=== PATIENT | male | born 1950 | race Caucasian/White ===

== ENCOUNTER 2017-06-05 07:33 | Observation (INO) | payer OTHER ==
[~2017-06-05] VITALS: Ht 182.9 cm; Wt 126.1 kg
[2017-06-05] VITALS (18 sets, daily range): BP systolic 129–163; BP diastolic 73–99
--- NOTE | ~2017-06-05 | H ---
[address] [address] HISTORY AND PHYSICAL Name: TRI MENDEZ Room: [address] Debo Mandujano#: [id number] Admission: 06/05/17 Attend Phys: Miles Carr MD, Discharge: 06/06/17 Date of : 48 Report #: [id number] THIS REPORT FOR: //name// Please refer to the History and Physical performed in the physician's office. By: 0645Medical Records Staff LIS /ANN
[~2017-06-05 07:33] MED LIST: CARDURA XL4 MG PO; CARVEDILOL6.25 MG PO; FISH OIL 1,001000 MG PO; GLUCOPHAGE500 MG PO; LEXAPRO 10 MG T10 M1 PER TUBE; LISINOPRIL20 MG PO; PLAVIX 75 MG TA75 M1 PER TUBE; SIMVASTATIN40 MG PO; TUSSIONEX PENN473 ML PO; VITAMIN C + RO500 MG PO; VITAMIN D-32000 UNIT PO; ZPAK PO
--- NOTE | 2017-06-05 07:37 | NUR ---
C/O NEED TO VOID. WENT TO BATHROOM PRIOR TO BEING TRIAGED OR EKG DONE.
--- NOTE | 2017-06-05 07:37 | NUR ---
CALL RECEIVED FROM OUTPATIENT FACILITY PHYSICAL THERAPIST CHAPO PRIOR TO PT'S ARRIVAL, STATED THAT PT IS EXPECTED BY CARDIOLOGY & PLAN IS TO TAKE PT TO [facility] & TO CALL OUTPATIENT FACILITY PHYSICAL THERAPIST WHEN PT ARRIVES IN E.D.
--- NOTE | 2017-06-05 07:45 | NUR ---
CARDIOLOGY NURSE CHAPO NOTIFIED OF PT'S ARRIVAL.
[2017-06-05] MEDS ORDERED: WELCHOL 625 MG625 MG PO (07:54)
[2017-06-05] MEDS ORDERED: LISINOPRIL20 MG PO (07:54)
[2017-06-05] MEDS ORDERED: COREG6.25 MG PO (07:54)
[2017-06-05] MEDS ORDERED: PLAVIX 75 MG TA75 M1 PO (07:54)
[2017-06-05] MEDS ORDERED: ASPIR 8181 MG PO (07:54)
[2017-06-05] MEDS ORDERED: DOXAZOSIN MESYLA4 MG PO (07:55)
[2017-06-05] MEDS ORDERED: OMEPRAZOLE20 M2 PO (07:56)
[2017-06-05] MEDS ORDERED: FISH OIL 1,001000 M2 PO (07:56)
[2017-06-05] MEDS ORDERED: METFORMIN HCL500 MG PO (07:56)
[2017-06-05] MEDS ORDERED: SIMVASTATIN40 MG PO (07:56)
[2017-06-05] MEDS ORDERED: VITAMIN E400 UNIT PO (07:57)
[2017-06-05] MEDS ORDERED: OSTERA TABLET1 EAC1 PO (07:57)
[2017-06-05] MEDS ORDERED: VITAMINC500 PO (07:58)
[2017-06-05 08:44] LABS: ABSOLUTE EOSINOPHILS 0.2 thou/uL (0.0-0.7); ABSOLUTE LYMPHOCYTES 1.2 thou/uL (0.8-5.3); ABSOLUTE MONOCYTES 0.5 thou/uL (0.0-1.2); ABSOLUTE NEUTROPHILS 2.6 thou/uL (1.6-8.1); EOSINOPHILS 5.1 %; HEMATOCRIT 40.6 % (42.0-52.0); HEMOGLOBIN 14.1 gm/dL (14.0-18.0); LYMPHOCYTES 26.8 %; MCH 31.1 pg (26.0-34.0); MCHC 34.7 g/dL (28.0-37.0); MCV 89.5 fL (80.0-100.0); MONOCYTES 9.9 %; MPV 6.6 fl. (7.2-11.1); NUCLEATED RBCS 0 /100WBC; PLATELET COUNT* 242 thou/uL (150-400); POLYS 57.2 %; RBC 4.54 mil/uL (4.50-6.00); RDW-CV 13.4 % (10.5-14.5); WBC 4.5 thou/uL (4.0-11.0)
[2017-06-05 08:53] LABS: ANION GAP 8 mmol/L (7-16); BUN 18 mg/dL (7-18); CHLORIDE 105 mmol/L (98-107); CO2 27 mmol/L (21-32); GLUCOSE 126 mg/dL (70-99); SODIUM 140 mmol/L (136-145)
[2017-06-05 08:59] LABS: ALBUMIN 3.7 g/dL (3.4-5.0); ALKALINE PHOSPHATASE 63 U/L (46-116); SGOT 33 U/L (15-37); SGPT 75 U/L (30-65); TOTAL BILIRUBIN 0.4 mg/dL (<0.1-1.0); TOTAL PROTEIN 7.2 g/dL (6.4-8.2); TROPONIN-I LEVEL <0.06 ng/mL (<0.06)
--- NOTE | 2017-06-05 14:52 | EKG ---
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1950 Requested By: Bhavani Amador Order Number: [id number] MD: Miles Carr Measurements Intervals [place] Rate: 71 P: 48 HI: 214 QRS: 43 QRSD: 105 T: 66 QT: 397 QTc: 432 Interpretive Statements Sinus rhythm Borderline prolonged HI interval Borderline T wave abnormalities Compared to ECG 12/18/2011 12:33:54 T-wave abnormality now present Electronically Signed On 06-05-2017 14:52:02 CDT by Miles Carr [email or web address] <ELECTRONICALLY SIGNED> By: Miles Carr MD, [facility] 06/05/17 1452 0744 0744 Miles Carr MD, [facility] /EPI
--- NOTE | 2017-06-05 14:53 | EKG ---
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 06/05/17 1453 1228 1228 Miles Carr MD, FACC /EPI
--- NOTE | 2017-06-05 15:27 | CARD ---
[address] [address] CARDIAC CATH REPORT Name: TRI MENDEZ Room: [address] Debo MGeorge#: [id number] Admission: 06/05/17 Attend Phys: Miles Carr MD, Discharge: Date of : 48 Report #: [id number] THIS REPORT FOR: //name// APPROVED REPORT Study performed: 06/05/2017 09:34:12 Patient Details Patient Status: ED Room #: The patient is a 66 year-old male Event Personnel Miles Carr Institutional Aide, Carmencita Valdez RN RN, Anay Tamayo, Jagruti Laguna RTOsorio Monitor Procedures Performed Art Access - R femoral artery* Left Heart Cath w/LT VGram [id number] [facility]CLV ESTEFANY Place w/wo Plasty Single RCA 300754 Hemostasis w/ Angioseal Indication Unstable angina Risk Factors Obesity, Hypercholesterolemia, Hypertension Previous Procedures/Diagnoses Previous PCI Admission/Lab Medications/Medications given during procedure Fentanyl IV 25 mcg, Midazolam (Versed) IV 2 mg, Lidocaine Subcut 10 ml, Angiomax IV 18 ml, Angiomax Drip IV 42.7 ml per hr, Ticagrelor PO 180 mg, Aspirin PO 324 mg Procedure Narrative The patient was brought urgently to the Cardiac Catheterization Laboratory and was prepped and draped in a sterile manner. The right femoral was infiltrated with 1% Lidocaine subcutaneous anesthesia. A [place] 6 FR sheath was inserted into the right femoral artery. Coronary angiography was performed using coronary diagnostic catheters. The right coronary system was accessed and visualized with a 6FR JR4 catheter. The left coronary system was accessed and visualized with a 6FR JL4 catheter. The left ventricle was accessed and visualized with a 6FR Pigtail catheter. Left ventricular/Aortic Valve gradient assessed via catheter pullback[place] [address] CARDIAC CATH REPORT Name: TRI MENDEZ Room: [address]#: [id number] Admission: 06/05/17 Attend Phys: Miles Carr MD, Discharge: Date of : 48 Report #: [id number] was performed in [place] projection. Pre-demployment femoral angiogram was performed . Closure device was deployed with a 6 Fr Angioseal. The patient tolerated the procedure well and there were no complications associated with the procedure. There was no hematoma. Intraoperative Conscious Sedation Sedation start time: 955 Case end Time: 1056 Fentanyl 25 mcg Versed 2 mg Fluoro Time: 12.1 minutes Dose: DAP 362997 cGycm2 2608.66 mGy Contrast Type and Amount: Visipaque 260 ml Coronary Angiography The patient's coronary anatomy is right dominant. Diagnostic Cath Left Main 0% narrowing LAD 40% mid vessel narrowing Circumflex 40% mid vessel narrowing Right Coronary Large dominant vessel with 40% proximal narrowing and 80% distal narrowing just beyond the acute margin with 40% narrowing just before the bifurcation into the posterior descending and posterolateral branches and 40% narrowing of the proximal posterolateral branch of the distal right coronary artery Left Ventriculography The left ventricle is normal in size with contractility. The left ventricular ejection fraction is estimated to be 60%. Left ventricular wall motion abnormalities are present. Mild inferobasilar hypokinesis is noted Hemodynamics The aortic pressure is 151/78 mmHg with a mean of 108 mmHg. The left ventricular pressure is 149/3 mmHg with a mean of mmHg. The left ventricular end diastolic pressure is 12 mmHg. There was no gradient across the aortic valve upon pullback. PCI Technique Lesion Anticoagulation was achieved with Angiomax. Percutaneous coronary intervention was performed on the distal right coronary artery. The lesion stenosis prior to intervention was 80% with BIBIANA 3 flow. A 6F JR 4.0 Guide Catheter was used to engage the right coronary ostium. A IG: BMW 190cm Interventional Guidewire [place] [address] CARDIAC CATH REPORT Name: TRI MENDEZ Room: [address] MVidaRVida#: [id number] Admission: 06/05/17 Attend Phys: Miles Carr MD, Discharge: Date of : 48 Report #: [id number] lesion. BALLOON DILATION A Balloon catheter NC Euphora 2.75x12 was inserted and inflated up to 18.00atm for 14seconds. Additional Inflation: 22.00atm for 16seconds. STENT DEPLOYMENT A drug-eluting stent Xience Alpine RX 3.0X15 was inserted and inflated up to 12.00atm for 17seconds. Additional Inflation: 17.00atm for 20seconds. Additional Inflation: 18.00atm for 15seconds. POST STENT DEPLOYMENT BALLOON DILATION A Balloon catheter NC Trek RX 3.25X8 was inserted and inflated up to 14.00atm for 11seconds. Additional Inflation: 17.00atm for 12seconds. Additional Inflation: 18.00atm for 11seconds. Final angiography reveals 0 % stenosis with BIBIANA 3 flow. Conclusion #1 significant coronary artery disease characterized by the following: A 40% mid LAD narrowing, B 40% mid circumflex narrowing C large dominant right coronary artery with 40% proximal narrowing 80% distal narrowing just beyond the acute margin and 40% narrowing just prior to the bifurcation ointo the posterior descending and posterolateral branches with 40% proximal posterolateral branch narrowing #2 normal left-sided hemodynamics study #3 normal global left ventricular systolic function, estimated ejection fraction being 60% with mild inferobasilar hypokinesis #4 successful percutaneous coronary intervention with deployment of a drug-eluting stent at the site of 80% distal right coronary stenosis with 0% residual narrowing following stent deployment and BIBIANA-3 flow to the distal vessel Recommendations [place] [address] CARDIAC CATH REPORT Name: TRI MENDEZ Room: [address] Debo Mandujano#: [id number] Admission: 06/05/17 Attend Phys: Miles Carr MD, Discharge: Date of : 48 Report #: [id number] Aggressive Medical Therapy Medications Administered Aspirin (any) Ticagrelor Diagnostic Cath Approved by: Miles Carr MD Date/Time: 06/05/17 at 1525 hrs. <ELECTRONICALLY SIGNED> By: Miles Carr MD, FACC 06/05/17 1527 1527 1527Joraffi Carr MD, FACC /INF
--- NOTE | 2017-06-05 15:52 | NUR ---
RECEIVED REPORT AND ASSUMED CARE OF PT AT 1130. VSS. CARDIAC MONITORING IN PLACE. PT DENIES COMPLAINTS OF NEW PAIN. STATES HE HAS CHRONIC LOWER BACK AND KNEE PAIN THAT HE TAKES NOTHING FOR. PT VERBALIZES UNDERSTANDING OF IMPORTANCE TO ADHERANCE OF POST CATH CARE. PT INFORMED BEDREST FOR 6 HOURS POST CATH. CATH SITE DRESSING CLEAN AND INTACT. PERFORMED ASSESSMENT CHARTED. PT IN BED IN SUPINE POSITION IN [place]SE [place]. BED ALARM ON, CALL LIGHT WITHIN REACH DISCUSSED PLAN OF CARE WITH PT, VERBALIZED UNDERSTANDING. WILL CONTINUE TO MONITOR
--- NOTE | 2017-06-05 17:00 | NUR ---
VSS. CARDIAC MONITORING IN PLACE. PT DENIES ANY COMPLAINTS OF PAIN. CATH SITE DRESSING ASSISTED SATURATED, NO HEMATOMA NOTED. PT PROGRESSING TOWARDS GOALS. WILL CONTINUE TO MONITOR FOR REMAINDER OF THE SHIFT.
[2017-06-06] VITALS (8 sets, daily range): BP systolic 134–155; BP diastolic 68–85
[2017-06-06 05:32] LABS: HEMATOCRIT 38.1 % (42.0-52.0); HEMOGLOBIN 13.3 gm/dL (14.0-18.0); MCH 31.2 pg (26.0-34.0); MCHC 34.9 g/dL (28.0-37.0); MCV 89.5 fL (80.0-100.0); RBC 4.26 mil/uL (4.50-6.00); RDW-CV 13.7 % (10.5-14.5); WBC 4.8 thou/uL (4.0-11.0)
--- NOTE | 2017-06-06 06:04 | NUR ---
PT IS ABLE TO COMMUNICATE HIS NEEDS TO STAFF EFFECTIVELY. HE HAS DENIED THE NEED FOR PAIN MEDICATION UP TO THIS TIME. NO CHANGE TO RIGHT GROIN SITE OVERNIGHT; NO OBSERVABLE EVIDENCE OF A HEMATOMA NOR SIGNS OF CONTINUED BLEEDING. LIKELY DISCHARGE TODAY.
[2017-06-06 06:06] LABS: ANION GAP 11 mmol/L (7-16); BUN 14 mg/dL (7-18); CALCIUM 8.7 mg/dL (8.5-10.1); CHLORIDE 104 mmol/L (98-107); CHOLESTEROL 124 mg/dL (<200); CO2 25 mmol/L (21-32); CREATININE 0.9 mg/dL (0.6-1.3); GLUCOSE 125 mg/dL (70-99); HDL CHOLESTEROL 26 mg/dL (>40); LDL CHOLESTEROL 63 mg/dL (<100); POTASSIUM 3.9 mmol/L (3.5-5.1); SODIUM 140 mmol/L (136-145); TC:HDL 4.8 Ratio (Not establshd); TRIGLYCERIDE 178 mg/dL (<150); TROPONIN-I LEVEL <0.06 ng/mL (<0.06); VLDL 36 mg/dL (<40)
[2017-06-06 06:07] LABS: SERUM ASSESSMENT Clear
--- NOTE | 2017-06-06 10:34 | NUR ---
PT CARE ASSUMED AROUND 0700. ASSESSMENT COMPLETED. PT DENIES PAIN AND CONCERNS. MEDICATION EDUCATION PROVIDED. WILL CONTINUE TO MONITOR.
[2017-06-06] MEDS ORDERED: BRILINTA90 MG PO ×2 (11:13→11:14)
--- NOTE | 2017-06-10 12:25 | D ---
[address] [address] DISCHARGE SUMMARY Name: TRI MENDEZ Room: [address] Debo Mandujano#: [id number] Admission: 06/05/17 Attend Phys: Miles Carr MD, Discharge: 06/06/17 Date of : 48 Report #: [id number] THIS REPORT FOR: //name// CC: Anders Carr DATE OF SERVICE: 06/06/2017 FINAL DISCHARGE DIAGNOSES: 1. Unstable angina. 2. Coronary artery disease. 3. Status post percutaneous coronary intervention of the right coronary artery on 06/05/2017. 4. Hypertension. 5. Hyperlipoproteinemia. 6. Obesity. 7. History of testicular cancer. PROCEDURES: 06/05/2017-left heart catheterization, left ventriculography, selective coronary arteriography, and percutaneous coronary intervention with deployment of a drug-eluting stent at the site of 80% tubular distal right coronary in-stent restenosis. The patient is a 66-year-old male with a history of coronary artery disease status post remote stenting of the right coronary artery and circumflex approximately 14 years ago. He presented recently with recurrent chest tightness and shortness of breath with modest activity, typical of his prior ischemic syndrome. He has underlying hypertension, hyperlipoproteinemia, and exogenous obesity. In that setting, he underwent recatheterization on 06/05/2017, which revealed 80% distal right coronary in-stent restenosis just proximal to prominent posterolateral and posterior descending branches. There was 40% mid circumflex in-stent narrowing with 40% mid LAD narrowing in the [place] vessel. In this setting, I performed percutaneous coronary intervention, deploying one 3.0 x 15 mm Xience Alpine drug-eluting stent in the distal right coronary artery with 0% residual narrowing and BIBIANA 3 flow of the distal vessel. He did well post-procedurally with good hemostasis at the femoral site of catheterization. Laboratory on 06/06, revealed a hemoglobin of 13.3, white blood cell count of 4800 with 243,000 platelets. Sodium 140, potassium 3.9, BUN 14, creatinine 0.9, GFR 84, glucose 125 mg percent. He ambulated in the hallways without difficulty and was discharged to home in stable condition on 06/06/2017, on the following medications: Ascorbic acid 500 mg daily, [place] [address] DISCHARGE SUMMARY Name: TRI MENDEZ Room: [address] Debo Mandujano#: [id number] Admission: 06/05/17 Attend Phys: Miles Carr MD, Discharge: 06/06/17 Date of : 48 Report #: [id number] 81 mg daily, carvedilol 6.25 mg b.i.d., Welchol 625 mg daily, fish oil 1000 mg daily, doxazosin 4 mg daily, lisinopril 20 mg daily, metformin 500 mg daily to be resumed on 06/07/2017, omeprazole 20 mg daily, simvastatin 40 mg at bedtime, ticagrelor or Brilinta 90 mg b.i.d. with 180 mg dose given as a loading dose procedurally, vitamin D3 one tablet daily, vitamin E 400 units daily. I will plan to see the patient in followup in approximately 4 weeks. Thus, he is discharged to home in stable condition on the aforementioned medications with followup as iterated above. He is discharged from room 208. <ELECTRONICALLY SIGNED> By: Miles Carr MD, [facility] 06/10/17 1225 0917 1035Joraffi Carr MD, [facility] /nt
== END 2017-06-06 13:35 | disposition home or self-care (01) ==
LOC: M.CL 07:33 → M.ERS 07:33 → M.CL 10:09 → M.TBA-CV 11:23 → M.2W 11:23
PROVIDERS: Personal Emergency Response Attendant; ADMIT Internal Medicine
DX: I25.110 Atherosclerotic heart disease of native coronary artery with unstable angina pectoris (principal); I10 Essential (primary) hypertension; E78.5 Hyperlipidemia, unspecified; E66.9 Obesity, unspecified; Z98.61 Coronary angioplasty status; E66.09 Other obesity due to excess calories; E78.00 Pure hypercholesterolemia, unspecified; Z96.653 Presence of artificial knee joint, bilateral

== ENCOUNTER 2017-06-27 12:59 | Observation (INO) | payer OTHER ==
[~2017-06-27] VITALS: Ht 182.9 cm; Wt 125.6 kg
[~2017-06-27 12:59] MED LIST changes: +ASPIR 8181 MG PO; +BRILINTA90 MG PO; +COREG6.25 MG PO; +DOXAZOSIN MESYLA4 MG PO; +FISH OIL 1,001000 M2 PO; +METFORMIN HCL500 MG PO; +OMEPRAZOLE20 M2 PO; +OSTERA TABLET1 EAC1 PO; +PLAVIX 75 MG TA75 M1 PO; +VITAMIN E400 UNIT PO; +VITAMINC500 PO; +WELCHOL 625 MG625 MG PO
[2017-06-27 13:01] VITALS: BP 172/99
[2017-06-27] MEDS ORDERED: ZOLOFT50 MG PO (13:07)
[2017-06-27 14:03] LABS: ABSOLUTE BASOPHILS 0.1 thou/uL (0.0-0.2); ABSOLUTE EOSINOPHILS 0.2 thou/uL (0.0-0.7); ABSOLUTE LYMPHOCYTES 1.2 thou/uL (0.8-5.3); ABSOLUTE MONOCYTES 0.4 thou/uL (0.0-1.2); ABSOLUTE NEUTROPHILS 3.8 thou/uL (1.6-8.1); BASOPHILS 1.2 %; EOSINOPHILS 2.8 %; HEMATOCRIT 42.5 % (42.0-52.0); HEMOGLOBIN 14.6 gm/dL (14.0-18.0); LYMPHOCYTES 21.1 %; MCH 31.2 pg (26.0-34.0); MCHC 34.2 g/dL (28.0-37.0); MCV 91.2 fL (80.0-100.0); MONOCYTES 7.1 %; MPV 6.9 fl. (7.2-11.1); NUCLEATED RBCS 0 /100WBC; PLATELET COUNT* 210 thou/uL (150-400); POLYS 67.8 %; RBC 4.66 mil/uL (4.50-6.00); RDW-CV 13.6 % (10.5-14.5); WBC 5.5 thou/uL (4.0-11.0)
[2017-06-27 14:08] LABS: ANION GAP 8 mmol/L (7-16); BUN 15 mg/dL (7-18); CALCIUM 9.2 mg/dL (8.5-10.1); CHLORIDE 104 mmol/L (98-107); CO2 28 mmol/L (21-32); CREATININE 1.2 mg/dL (0.6-1.3); GLUCOSE 112 mg/dL (70-99); POTASSIUM 3.8 mmol/L (3.5-5.1); SODIUM 140 mmol/L (136-145)
[2017-06-27] MEDS ORDERED: BAYER CHEWABLE81 MG PO (14:10)
[2017-06-27 14:19] LABS: ALKALINE PHOSPHATASE 61 U/L (46-116); NT-PRO BRAIN NAT PEPTIDE 15 pg/mL (<300); SGOT 34 U/L (15-37); SGPT 71 U/L (30-65); TOTAL BILIRUBIN 0.3 mg/dL (<0.1-1.0); TOTAL PROTEIN 7.5 g/dL (6.4-8.2); TROPONIN-I LEVEL <0.06 ng/mL (<0.06)
[2017-06-27 15:45] VITALS: BP 183/98
[2017-06-27 16:18] VITALS: BP 165/87
[2017-06-27 17:03] LABS: MAGNESIUM 1.8 mg/dL (1.8-2.4); TROPONIN-I LEVEL <0.06 ng/mL (<0.06)
--- NOTE | 2017-06-27 17:04 | EKG ---
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 : 1950 Requested By: Bhavani Amador Order Number: [id number] MD: Satnam Winston Measurements Intervals [place] Rate: 68 P: 64 MN: 39 QRS: 60 QRSD: 104 T: 67 QT: 403 QTc: 429 Interpretive Statements Sinus rhythm Short [place] interval Borderline low voltage, extremity leads Baseline wander in lead(s) V3 Compared to ECG 06/05/2017 12:28:24 Short [place] interval now present First degree AV block no longer present Electronically Signed On 06-27-2017 17:03:51 CDT by Satnam Winston [email or web address] <ELECTRONICALLY SIGNED> By: Satnam Winston MD, FAC 06/27/17 1703 1303 1303 Satnam Winston MD, FAC /EPI
[2017-06-27 18:28] LABS: URINE BILIRUBIN NEGATIVE (Negative); URINE BLOOD NEGATIVE (Negative); URINE CLARITY CLEAR; URINE COLOR YELLOW; URINE GLUCOSE-RANDOM NEGATIVE (Negative); URINE KETONES NEGATIVE (Negative); URINE LEUKOCYTES-REFLEX NEGATIVE (Negative); URINE NITRITE-REFLEX NEGATIVE (Negative); URINE PROTEIN NEGATIVE (Negative); URINE UROBILINOGEN 0.2 E.U./dl (0.2-1.0)
[2017-06-27 20:00] VITALS: BP 132/82
[2017-06-27 23:46] VITALS: BP 134/68
[2017-06-28 04:20] VITALS: BP 136/62
[2017-06-28 05:44] LABS: ABSOLUTE BASOPHILS 0.1 thou/uL (0.0-0.2); ABSOLUTE EOSINOPHILS 0.2 thou/uL (0.0-0.7); ABSOLUTE LYMPHOCYTES 1.5 thou/uL (0.8-5.3); ABSOLUTE MONOCYTES 0.5 thou/uL (0.0-1.2); ABSOLUTE NEUTROPHILS 2.8 thou/uL (1.6-8.1); BASOPHILS 1.1 %; EOSINOPHILS 3.3 %; HEMATOCRIT 40.8 % (42.0-52.0); HEMOGLOBIN 13.9 gm/dL (14.0-18.0); LYMPHOCYTES 30.6 %; MCHC 34.2 g/dL (28.0-37.0); MCV 90.5 fL (80.0-100.0); MONOCYTES 9.1 %; MPV 6.9 fl. (7.2-11.1); NUCLEATED RBCS 0 /100WBC; PLATELET COUNT* 209 thou/uL (150-400); POLYS 55.9 %; RDW-CV 13.6 % (10.5-14.5)
[2017-06-28 06:02] LABS: ALBUMIN 3.6 g/dL (3.4-5.0); CREATININE 1.1 mg/dL (0.6-1.3); TOTAL BILIRUBIN 0.5 mg/dL (<0.1-1.0); TOTAL PROTEIN 6.6 g/dL (6.4-8.2)
[2017-06-28 07:51] VITALS: BP 172/86
--- NOTE | 2017-06-28 08:33 | CON ---
[address] [address] CONSULTATION Name: SATNAM MENDEZ Room: [address] IN .R.#: [id number] Admission: 06/27/17 Attend Phys: Salas Henao Discharge: Date of : 48 Report #: [id number] THIS REPORT FOR: //name// CC: Anders Carr MD [facility] Mateo Nava ____ ____ DATE OF SERVICE: 06/27/2017 INDICATION: Dyspnea. HISTORY OF PRESENT ILLNESS: The patient is a very pleasant 66-year-old gentleman with a history of coronary artery disease. He had percutaneous coronary intervention to his circumflex and right coronary artery approximately 14 years ago. Approximately 3 weeks ago after having recurrence of his rather typical dyspnea, he underwent catheterization and was found to have an area of stenosis in the right coronary artery adjacent to the previous stented region for which he underwent recurrent percutaneous coronary intervention and drug-eluting stent placement. He did well with that procedure. He states he felt well for approximately 4 days after the procedure and then began again to develop significant dyspnea on exertion. He describes this as his anginal equivalent. He has not been having chest pain. He does not have orthopnea or paroxysmal nocturnal dyspnea. He states that his dyspnea resolved usually within seconds to minutes. Today, he had an episode while carrying a bag of groceries that was persistent and it was at that point he decided to proceed to the hospital for further evaluation. PAST MEDICAL HISTORY: 1. Coronary artery disease. 2. Hyperlipidemia. 3. Borderline diabetes. 4. Hypertension. PAST SURGICAL HISTORY: 1. Back surgery remotely. 2. Cholecystectomy remotely. 3. Hip surgery. 4. Orchiectomy. 5. Bilateral total knee replacement complicated with DVT and pulmonary embolus approximately 10 years ago. ALLERGIES: None documented. HOME MEDICATIONS: Aspirin 81 mg daily, carvedilol 6.25 mg b.i.d., fish oil [address] [place] [address] CONSULTATION Name: SATNAM MENDEZ Room: [address]#: [id number] Admission: 06/27/17 Attend Phys: Salas Henao Discharge: Date of : 48 Report #: [id number] mg daily, Cardura 4 mg daily, metformin 500 mg daily, omeprazole 20 mg daily, Zoloft 50 mg daily, simvastatin 40 mg daily, Brilinta 90 mg b.i.d., and tablets 1 tablet daily. SOCIAL HISTORY: The patient is a lifelong nonsmoker. He does not drink alcohol. He is . He has a son in attendance with him at present. FAMILY HISTORY: Noncontributory. REVIEW OF SYSTEMS: A 14-point review of systems is positive for cough that is nonproductive, remote history of pneumonia, dyspnea on exertion, palpitations with exertion, remote history of testicular cancer status post orchiectomy, remote history of DVT and pulmonary embolus, history of depression and anxiety for which he is on medication. He has some arthritis without connective tissue disease. He wears glasses without acute visual change. He did have some epistaxis with last hospitalization here. Otherwise, 14-point review of systems was unremarkable. PHYSICAL EXAMINATION: VITAL SIGNS: Stable. Blood pressure was 165/87, pulse 68 and regular. GENERAL: This a moderately obese, pleasant white male, in no distress. Mood and affect appropriate. HEENT: The patient is wearing glasses. Extraocular muscles are intact. Mucous membranes are moist. NECK: Shows no jugular venous distention. There are no carotid bruits. CHEST: Reveals clear lung hay without wheezes or rales. CARDIAC: Reveals a regular rhythm with normal S1 and S2. I do not appreciate gallop or murmur. ABDOMEN: Reveals normal bowel sounds. The abdomen is soft and nontender. EXTREMITIES: Shows no edema. Peripheral pulses 2+ and easily palpable. SKIN: Warm and dry. A 12-lead EKG in the emergency room shows sinus rhythm with no significant ST or T-wave abnormalities. LABS: Reviewed. CBC shows white count 5.5, hemoglobin 14.6, platelet count 210,000. Coags are within normal limits. D-dimer 1.74. Comprehensive metabolic profile shows sodium 140, potassium 3.8, chloride 104, bicarb 28, BUN 15, creatinine 1.2, serum glucose 112. LFTs are within normal limits. EGFR 60. Troponin less than 0.06. NT-proBNP 15. A chest x-ray shows no acute cardiopulmonary abnormality. VQ scan was low probability for pulmonary embolus. IMPRESSION AND RECOMMENDATIONS: [place] [address] CONSULTATION Name: SATNAM MENDEZ Room: [address] IN [facility].#: [id number] Admission: 06/27/17 Attend Phys: Salas Henao Discharge: Date of : 48 Report #: [id number] 1. Recurrent dyspnea on exertion, etiology is not entirely clear at this point in time. The patient could be having some angina, although this seems doubtful as he had excellent result with his most recent percutaneous coronary intervention without significant other underlying significant narrowings noted. I suspect this may be related to his Brilinta, which should improve with time. We will rule out for myocardial infarction and obtain noninvasive stress testing in the a.m. 2. Hypertension. Continue cardiac medications as outlined above. We will make adjustments as needed. 3. Hyperlipidemia. Continue current statin agent. His last fasting lipid profile 4 weeks ago shows him to be at goal. 4. Borderline diabetes. The patient appears relatively stable at this time. Continuing metformin at current dose. 5. Recent percutaneous coronary intervention. The patient is on dual antiplatelet therapy with Brilinta and aspirin. At this point in time, I would like to continue both. May need to substitute something for his Brilinta if he continues to have significant dyspnea without other etiology. <ELECTRONICALLY SIGNED> By: Satnam Winston MD, FACC 06/28/17 0833 1639 13Satnam Winston MD, FACC /nt
[2017-06-28 11:37] VITALS: BP 138/73
[2017-06-28 15:06] VITALS: BP 175/92
--- NOTE | 2017-06-28 15:21 | 2DMMODE ---
[place] [address] 2 D/M-MODE ECHOCARDIOGRAM Name: TRI MENDEZ Room: [address] IN [facility]#: [id number] Admission: 06/27/17 Attend Phys: Mateo Nava Discharge: Date of : 48 Date of Service: 06/28/17 1521 Report #: [id number] THIS REPORT FOR: //name// APPROVED REPORT Study performed: 06/28/2017 10:35:38 EXAM: Comprehensive 2D, Doppler, and color-flow Echocardiogram Patient Location: In-Patient Room #: [facility] Status: routine BSA: 2.45 HR: 74 bpm BP: 172/86 mmHg Rhythm: NSR Other Information Study Quality: Good Indications Dyspnea 2D Dimensions LVEF(%): 76.83 (>50%) IVSd: 13.73 (7-11mm) LVOT Diam: 23.18 (18-24mm) LVDd: 51.35 mm PWd: 10.88 (7-11mm) Ascending Ao: 40.93 (22-36mm) LVDs: 27.84 (25-40mm) Aortic Root: 40.73 mm Scott's LVEF: 76.83 % Volumes Left Atrial Volume (Systole) LA ESV Index: 34.20 mL/m2 Aortic Valve AoV Peak Osmar.: 1.38 m/s AO Peak Gr.: 7.56 mmHg LVOT Max P.46 mmHg AO Mean Gr.: 4.27 mmHg LVOT Mean P.75 mmHg LVOT Max V: 1.17 m/s AO V2 VTI: 29.41 cm LVOT Mean V: 0.77 m/s MARGUERITE (VTI): 3.39 cm2 LVOT V1 VTI: 23.65 cm Mitral Valve E/A Ratio: 1.03 [place] [address] 2 D/M-MODE ECHOCARDIOGRAM Name: TRI MENDEZ Room: [address] IN .R.#: [id number] Admission: 06/27/17 Attend Phys: Mateo Nava Discharge: Date of : 48 Date of Service: 06/28/17 1521 Report #: [id number] MV Decel. Time: 273.37 ms MV E Max Osmar.: 0.63 m/s MV PHT: 79.28 ms MVA (PHT): 2.78 cm2 TDI E/Lateral E': 6.30 E/Medial E': 5.25 Medial E' Osmar.: 0.12 m/s Lateral E' Osmar.: 0.10 m/s Pulmonary Valve PV Peak Osmar.: 1.16 m/s PV Peak Gr.: 5.42 mmHg Left Ventricle The left ventricle is normal size. There is normal LV segmental wall motion. There is normal left ventricular wall thickness. Left ventricular systolic function is normal. The left ventricular ejection fraction is within the normal range. LVEF is 60-65%. Grade I - abnormal relaxation pattern. Right Ventricle The right ventricle is normal size. The right ventricular systolic function is normal. Atria Left atrium is at the upper limits of normal. Right atrium is dilated. Aortic Valve The aortic valve is normal in structure. No aortic regurgitation is present. There is no aortic valvular stenosis. Mitral Valve The mitral valve is normal in structure. There is no mitral valve regurgitation noted. No evidence of mitral valve stenosis. Tricuspid Valve The tricuspid valve is normal in structure. Unable to assess PA pressure. Trace tricuspid regurgitation. Pulmonic Valve The pulmonary valve is normal in structure. There is no pulmonic valvular regurgitation. Great Vessels The aortic root is normal in size. IVC is [place] [address] 2 D/M-MODE ECHOCARDIOGRAM Name: TRI MENDEZ Room: [address] IN ..#: [id number] Admission: 06/27/17 Attend Phys: Mateo Nava Discharge: Date of : 48 Date of Service: 06/28/17 1521 Report #: [id number] collapses with >50% inspiration Pericardium There is no pericardial effusion. <Conclusion> The left ventricle is normal size. There is normal left ventricular wall thickness. Left ventricular systolic function is normal. The left ventricular ejection fraction is within the normal range. LVEF is 60-65%. Grade I - abnormal relaxation pattern. The right ventricle is normal size. Left atrium is at the upper limits of normal. The aortic valve is normal in structure. The mitral valve is normal in structure. The tricuspid valve is normal in structure. IVC is normal in size and collapses with >50% inspiration There is no pericardial effusion. There is normal LV segmental wall motion. <ELECTRONICALLY SIGNED> By: Miles Carr MD, FACC 06/28/17 1521 1521 152 Miles Carr MD, FACC /INF
--- NOTE | 2017-06-28 16:09 | CARDNUC ---
[place] [address] CARDIAC NUCLEAR IMAGING REPORT Name: SATNAM MENDEZ Room: [address] IN [facility]#: [id number] Admission: 06/27/17 Attend Phys: Mateo Nava Discharge: Date of : 48 Date of Service: 06/28/17 1609 Report #: [id number] THIS REPORT FOR: //name// APPROVED REPORT Study performed: 06/27/2017 16:41:00 Exam: Nuclear Stress Test Indication: Dyspnea Patient Location: In-Patient Room #: [facility] Stress Tech: Susi Herring Stress Nurse: Vickie Shah RN Ht: 6 ft 0 in Wt: 277 lbs BSA: 2.45 m2 BMI: 37.56 Medical History Medical History: CAD, PCI WITH STENT Medications: ASPIRIN, CARVEDILOL, SIMVASTATIN, BRILINTA Allergies: NKDA Cardiac Risk Factors: AGE, HYPERLIPIDEMIA, HYPERTENSION Previous Cardiac Procedures: PCI Exercise History: Indeterminate TROPONIN NEGATIVE X 3 Stress Test Details Stress Test: Pharmacologic stress testing performed using 0.4 mg of regadenoson per 5 mL given IV over 10 seconds. Reason for pharmacologic stress test: physical limitation. HR Resting HR: 75 bpm Max Heart Rate (APMHR): 153 bpm Max HR Achieved: 119 bpm Target HR (85% APMHR): 130 bpm % of APMHR: 77 Recovery HR: 83 bpm BP Resting BP: 169/100 mmHg Max BP: 194/79 mmHg ECG Resting ECG: Sinus Rhythm, normal EKG Stress ECG: Sinus Tachycardia ST Change: [place] [address] CARDIAC NUCLEAR IMAGING REPORT Name: SATNAM MENDEZ Room: [address]#: [id number] Admission: 06/27/17 Attend Phys: Mateo Nava Discharge: Date of : 48 Date of Service: 06/28/17 1609 Report #: [id number] Arrhythmia: None Recovery ECG: Sinus Rhythm, normal EKG Recovery ST Change: None Recovery Arrhythmia: None Clinical Reason for Termination: Completed protocol Stress Symptoms: NONE Exercise duration: 0 min sec Exercise capacity: 1 METs The patient had no significant symptoms with Lexiscan infusion. Stress ECG Conclusion The baseline 12-lead electrocardiogram showed normal sinus rhythm without significant ST or T wave abnormality. EKGs obtained during and post Lexiscan infusion showed sinus rhythm and sinus tachycardia withST or T wave changes when compared to baseline. There were no stress-induced arrhythmias. NM EXAM: Myocardial Perfusion REST/STRESS Imaging Protocol: Stress Tc-99m/Rest Tc-99m 2 days Pharmacologic Stress Pharmacologic stress test was performed by injecting Regadenoson 0.4 mg IV push followed by the intravenous injection of 42.0 mCi of Tc-99m Sestamibi. Time of stress injection: 1335 Date: 06/28/2017 Time of stress imagin Date: 06/28/2017 Administration Route: IV Administration Site: Left Hand Heart Rate at time of stress injection: 119 bpm. Gated Stress SPECT was performed 55 minutes after stress injection. The images were gated to evaluate regional wall motion and calculate left ventricular ejection fraction. Prone imaging was performed. Study Quality Study: Good Artifact: No artifact Study Data Post stress, the left ventricular ejection was 58%.. [place] [address] CARDIAC NUCLEAR IMAGING REPORT Name: SATNAM MENDEZ Room: [address] IN [facility]#: [id number] Admission: 06/27/17 Attend Phys: Mateo Nava Discharge: Date of : 48 Date of Service: 06/28/17 1609 Report #: [id number] Perfusion Post Lexiscan stress perfusion images show uniform uptake of the radioisotope throughout the myocardium without the. Wall Motion Normal left ventricular wall motion. Nuclear Conclusion ECG Findings: negative for ischemia Clinical Findings: negative for ischemia Nuclear Findings: negative for ischemia Exercise Capacity: not assessed Left Ventricular Function: normal Risk Study: low Myocardial perfusion images obtained post Lexiscan stress show uniform uptake of the radioisotope with no defect. Left ventricular systolic function was normal on gated studies. This is a low risk study. <Conclusion> The baseline 12-lead electrocardiogram showed normal sinus rhythm without significant ST or T wave abnormality. EKGs obtained during and post Lexiscan infusion showed sinus rhythm and sinus tachycardia withST or T wave changes when compared to baseline. There were no stress-induced arrhythmias. <ELECTRONICALLY SIGNED> By: Satnam Winston MD, FACC 06/28/17 1609 1609 1609 Satnam Winston MD, FACC /INF
[2017-06-28] MEDS ORDERED: PLAVIX 75 MG TA75 M1 PO (16:34)
[2017-06-28 16:36] VITALS: BP 168/88
== END 2017-06-28 19:00 | disposition home or self-care (01) ==
LOC: M.ERS 12:59 → M.2W 15:32 → M.TBA-ER 15:32 → M.2W 15:32
PROVIDERS: Personal Emergency Response Attendant; ADMIT Internal Medicine
DX: J96.01 Acute respiratory failure with hypoxia (principal); I10 Essential (primary) hypertension; I25.10 Atherosclerotic heart disease of native coronary artery without angina pectoris; E78.5 Hyperlipidemia, unspecified; K21.9 Gastro-esophageal reflux disease without esophagitis; E11.9 Type 2 diabetes mellitus without complications; E55.9 Vitamin D deficiency, unspecified; F41.9 Anxiety disorder, unspecified; Z85.47 Personal history of malignant neoplasm of testis; Z90.79 Acquired absence of other genital organ(s); Z95.5 Presence of coronary angioplasty implant and graft; Z98.890 Other specified postprocedural states